=== PATIENT | female | born 1980 | race Caucasian/White ===

== ENCOUNTER 2017-01-28 14:38 | Emergency (ER) | payer OTHER ==
[~2017-01-28] VITALS: Ht 165.1 cm; Wt 70.0 kg
[~2017-01-28 14:38] MED LIST: OXYC1SOL5 PO; PREN1TAB30 PO
[2017-01-28 14:40] VITALS: BP 158/96; PULSE 126; RESP 20; TEMP 97.7; O2SAT 99
[2017-01-28] MEDS ORDERED: SODIUM CHLOR 0.9% 1000 ML INJ 1,000 ML IV SCH (16:04)
[2017-01-28 16:10] VITALS: PULSE 97; RESP 16; O2SAT 98
[2017-01-28 16:13] VITALS: O2SAT 97
[2017-01-28] MEDS ORDERED: ACETAMINOPHEN 500 MG CPLT PO ONE (16:15)
[2017-01-28] MEDS ORDERED: SODIUM CHLORIDE 0.9% FLUSH 10 ML FLUSH IV FLUSH PRN (16:15)
--- NOTE | 2017-01-28 16:28 | PD ---
HPI Chief Complaint: Complaint Time Seen by Provider: 16:04 Travel History International Travel<30 days: No Contact w/Intl Traveler<30days: No Traveled to known affect area: No History of Present Illness HPI Patient is a 36-year-old female proximal to 8 weeks here with complaint of flank pain. Patient states that she has had approximately 2 weeks of bilateral flank pain right greater than left. She notes some nausea which she thought was initially just her first trimester , but it has been getting more frequently propping ER visit. She denies any urinary symptoms other than frequency which she also attributed to a first trimester . She has had a history of associated UTI. Normal vaginal bleeding, spotting, discharge. No abdominal pain. PFSH Past Medical History Medical History: Denies Significant Hx ?: LMP: 12/07/16 Social History Alcohol Use: No Tobacco Use: No Substance Use: No Allergies-Medications (Allergen,Severity, Reaction): Coded Allergies: Cymbalta (Verified Allergy, Mild, chest pain, 01/28/17) Hydrocodone (Verified Allergy, Mild, swelling, 01/28/17) Latex (Verified Allergy, Unknown, itching and rash, 01/28/17) Reported Meds & Prescriptions Reported Meds & Active Scripts Active Oxycodone/Acetaminophen 5 mg/325 mg 1 Tab Tab 1 Tab PO Q4H PRN Reported Vitamins ( Vit W/ Ferrous Fumara) 1 Tab Tab 1 Tab PO DAILY Review of Systems Except as stated in HPI: all other systems reviewed are Neg Physical Exam Narrative GENERAL: Well-appearing female in no acute distress SKIN: Focused skin assessment warm/dry. HEAD: Normocephalic. EYES: . No scleral icterus. No injection or drainage. ENT: Mucous membranes pink and moist. NECK: Supple CARDIOVASCULAR: Initially tachycardic, normalized upon recheck. No murmur appreciated. RESPIRATORY: No accessory muscle use. Clear to auscultation. Breath sounds equal bilaterally. GASTROINTESTINAL: Abdomen soft, non-tender, nondistended. Bilateral CVA tenderness to palpation mild MUSCULOSKELETAL: No midline tenderness to palpation of the thoracic or lumbar spine. NEUROLOGICAL: Awake and alert. Normal gait. Normal speech. PSYCHIATRIC: Appropriate mood and affect; insight and judgment normal. Data Data Last Documented VS Vital Signs Date Time Temp Pulse Resp B/P Pulse Ox O2 Delivery O2 Flow Rate FiO2 01/28/17 16:13 97 Room Air 01/28/17 16:10 97 16 01/28/17 14:40 97.7 158/96 Orders Basic Metabolic Panel (Bmp) (01/28/17 16:04) Complete Blood Count With Diff (01/28/17 16:04) Urinalysis - C+S If Indicated (01/28/17 16:04) Iv Access Insert/Monitor (01/28/17 16:04) Ecg Monitoring (01/28/17 16:04) Oximetry (01/28/17 16:04) Sodium Chlor 0.9% 1000 Ml Inj (Ns 1000 M (01/28/17 16:04) Sodium Chloride 0.9% Flush (Ns Flush) (01/28/17 16:15) Acetaminophen (Tylenol) (01/28/17 16:15) Urine Culture (01/28/17 16:55) Labs Laboratory Tests Test 01/28/17 16:16 White Blood Count 11.2 TH/MM3 Red Blood Count 5.07 MIL/MM3 Hemoglobin 14.2 GM/DL Hematocrit 43.7 % Mean Corpuscular Volume 86.2 FL Mean Corpuscular Hemoglobin 28.1 PG Mean Corpuscular Hemoglobin 32.6 % Concent Red Cell Distribution Width 13.3 % Platelet Count 224 TH/MM3 Mean Platelet Volume 8.6 FL Neutrophils (%) (Auto) 63.5 % Lymphocytes (%) (Auto) 28.5 % Monocytes (%) (Auto) 6.7 % Eosinophils (%) (Auto) 0.3 % Basophils (%) (Auto) 1.0 % Neutrophils # (Auto) 7.1 TH/MM3 Lymphocytes # (Auto) 3.2 TH/MM3 Monocytes # (Auto) 0.8 TH/MM3 Eosinophils # (Auto) 0.0 TH/MM3 Basophils # (Auto) 0.1 TH/MM3 CBC Comment DIFF FINAL Differential Comment Urine Color LIGHT-YELLOW Urine Turbidity HAZY Urine pH 5.5 Urine Specific [place] 1.008 Urine Protein NEG mg/dL Urine Glucose (UA) NEG mg/dL Urine Ketones NEG mg/dL Urine Occult Blood TRACE Urine Nitrite NEG Urine Bilirubin NEG Urine Urobilinogen LESS THAN 2.0 MG/DL Urine Leukocyte Esterase SMALL Urine RBC LESS THAN 1 /hpf Urine WBC 2 /hpf Urine Squamous Epithelial 5 /hpf Cells Microscopic Urinalysis Comment CULT NOT INDICATED Sodium Level 137 MEQ/L Potassium Level 3.7 MEQ/L Chloride Level 104 MEQ/L Carbon Dioxide Level 26.5 MEQ/L Anion Gap 7 MEQ/L Blood Urea Nitrogen 9 MG/DL Creatinine 0.65 MG/DL Estimat Glomerular Filtration 103 ML/MIN Rate Random Glucose 92 MG/DL Calcium Level 9.1 MG/DL [facility] Medical Decision Making Medical Screen Exam Complete: Yes Emergency Medical Condition: Yes Medical Record Reviewed: Yes Differential Diagnosis 36-year-old female approximately 8 weeks based on LMP here with bilateral flank pain. Differential includes UTI, pyelonephritis, musculoskeletal. No significant urinary symptoms or radiation of her pain to suspect bilateral ureterolithiasis. Given some of her nausea we'll check electrolytes and hemoglobin. Narrative Course Patient placed on monitor, IV established and blood obtained. Given 1 L normal saline bolus, 1 g Tylenol. CBC, BMP, urinalysis obtained and notable for trace blood with small leukocyte esterase, 2 white cells but a dirty specimen with squamous cells. We'll treat empirically with Macrobid while awaiting formal urine culture. Diagnosis Primary Impression: Bilateral flank pain Referrals: Solution Engineer call for appointment Additional Instructions: Antibiotics as prescribed. Nausea medications as needed. Med/Other Pt SpecificInfo: Prescription(s) given Scripts Ondansetron Odt (Zofran Odt)8 Mg Tab8 Mg SL Q8H PRN (NAUSEA OR VOMITING) #20 TAB Ref 0 Prov:Miranda Adames MD 01/28/17 Nitrofurantoin Monohydrate Macrocrystals (Macrobid)100 Mg [id number] Mg PO BID 7 Days Ref 0 Prov:Miranda Adames MD 01/28/17 Disposition: 01 DISCHARGE HOME Condition: Stable Miranda Adames MD Jan 28, 2017 16:28
[2017-01-28 16:30] LABS: AUTOMATED NEUTROPHIL # 7.1 TH/MM3 (1.8-7.7); BASOPHIL # 0.1 TH/MM3 (0-0.2); EOSINOPHIL % 0.3 % (0.0-4.0); HEMATOCRIT 43.7 % (35.0-46.0); HEMO FLAGS DIFF FINAL; LYMPH % 28.5 % (9.0-44.0); LYMPHOCYTE # 3.2 TH/MM3 (1.0-4.8); MEAN CELL VOLUME 86.2 FL (80.0-100.0); MEAN CORPUSCULAR HEMOGLOBIN 28.1 PG (27.0-34.0); MEAN CORPUSCULAR HGB CONC 32.6 % (32.0-36.0); MONO % 6.7 % (0.0-8.0); NEUT % 63.5 % (16.0-70.0); PLATELET COUNT 224 TH/MM3 (150-450); RED BLOOD COUNT 5.07 MIL/MM3 (4.00-5.30); RED CELL DISTRIBUTION WIDTH 13.3 % (11.6-17.2); WHITE BLOOD COUNT 11.2 TH/MM3 (4.0-11.0)
[2017-01-28 16:46] LABS: BLOOD, URINE TRACE (NEG); COMMENT (UR) CULT NOT INDICATED; CULTURE IF INDICATED CULT NOT INDICATED; GLUCOSE,URINE NEG (NEG); KETONE, URINE NEG (NEG); NITRITE,URINE NEG (NEG); PH, URINE 5.5 (5.0-8.5); SQUAMOUS EPITHELIAL CELL URINE 5 /hpf (0-5); URINE COLOR LIGHT-YELLOW (YELLW/STRAW)
[2017-01-28 16:52] LABS: BICARBONATE 26.5 MEQ/L (21.0-32.0); POTASSIUM 3.7 MEQ/L (3.5-5.1)
[2017-01-28] MEDS ORDERED: MACR100C2 PO (16:58)
[2017-01-28] MEDS ORDERED: ZOFR8TAB4 SL (16:58)
== END 2017-01-28 17:13 | disposition home or self-care (01) ==
LOC: NEPD 14:38
DX: R10.9 Unspecified abdominal pain (principal); Z3A.08 8 weeks gestation of pregnancy
CPT/HCPCS: 80048; 81001; 85025; 87086; 96360; 99284; J7030

== ENCOUNTER 2017-06-04 18:16 | Emergency (ER) | payer OTHER ==
[~2017-06-04 18:16] MED LIST changes: +MACR100C2 PO; +ZOFR8TAB4 SL
--- NOTE | 2017-06-04 19:31 | PD ---
HPI Chief Complaint Lower abdominal cramping Date Seen: Jun 04, 2017 Travel History International Travel<30 Days: No Contact w/Intl Traveler<30Days: No Known Affected Area: No History of Present Illness HPI at 25w 4d presents with c/o lower abdominal cramping. Patient denies urinary/bowel complaints. No LOF/VB. Weeks Gestation: 25 Para: 1 : 2 History Past Medical History Medical History: Denies Significant Hx Past Surgical History Surgical History: No Previous Surgery Family History Family History: Negative Social History Alcohol Use: No Tobacco Use: No Substance Abuse: No Allergies-Medications (Allergen,Severity, Reaction): Coded Allergies: duloxetine (Unverified Allergy, Mild, chest pain, 05/28/17) hydrocodone (Unverified Allergy, Mild, swelling, 05/28/17) latex (Unverified Allergy, Unknown, itching and rash, 05/28/17) Home Meds Active Scripts Ondansetron Odt (Zofran Odt) 8 Mg Tab, 8 MG SL Q8H Y for NAUSEA OR VOMITING, # 20 TAB 0 Refills Prov:Miranda Adames MD 01/28/17 Nitrofurantoin Monohydrate Macrocrystals (Macrobid) 100 Mg Cap, 100 MG PO BID for Infection for 7 Days, CAP 0 Refills Prov:Miranda Adames MD 01/28/17 Oxycodone W/ Acetaminophen (Oxycodone/Acetaminophen 5-325 mg/5Ml) 1 Tab Tab, 1 TAB PO Q4H Y for PAIN SCALE 1 TO 4, #30 TAB Prov:Jackie Villa MD 06/18/15 Reported Medications Vit W/ Ferrous Fumara ( Vitamin 27-0.8 mg) 1 Tab Tab, 1 TAB PO DAILY 04/19/15 Physical Exam AFVSS BP 128/78 Narrative GENERAL: Well-nourished, well-developed patient. SKIN: Warm and dry. HEAD: Normocephalic and atraumatic. EYES: No scleral icterus. No injection or drainage. ENT: No nasal drainage noted. Mucous membranes pink. Airway patent. NECK: Supple, trachea midline. No JVD. CARDIOVASCULAR: Regular rate and rhythm without murmurs, gallops, or rubs. RESPIRATORY: Breath sounds equal bilaterally. No accessory muscle use. BREASTS: Bilateral exam showed no masses , no retractions, no nipple discharge. ABDOMEN/GI: Abdomen soft, non-tender, bowel sounds present, no rebound, no guarding Gravid to [-] weeks size Fundal Height: [-] GENITOURINARY: External Genitalia: intact and normal in appearance BUS glands: [-] Cervix: [-] Dilatation: [0] Effacement: [0] Station: [3] Presentation: [-] Membranes: [intact or ruptured] Uterine Contractions: [-] FHT's: Category: [1] Baseline: [150s] Reactive: [yes] Variability: [moderate] Decels: [none] EXTREMITIES: No cyanosis or edema. BACK: Nontender without obvious deformity. No CVA tenderness. NEUROLOGICAL: Awake and alert. Motor and sensory grossly within normal limits. Five out of 5 muscle strength in all muscle groups. Normal speech. Data Data Vital Signs Reviewed: Yes MDM Interpretation(s) IUP at 25w 4d, lower abdominal pain. Plan Will d/c home. Hydration and other supportive therapies d/w patient. Close f/ u with OB provider encouraged. All questions answered. Diagnosis Diagnosis: Primary Impression: 25 weeks gestation of Additional Impression: Abdominal pain during in second trimester Disposition: DISCHARGE HOME So Jackson MD Jun 04, 2017 19:31
== END 2017-06-04 21:05 | disposition home or self-care (01) ==
LOC: HOBED 18:16
DX: O47.02 False labor before 37 completed weeks of gestation, second trimester (principal); Z3A.25 25 weeks gestation of pregnancy
CPT/HCPCS: 99283

== ENCOUNTER 2017-07-02 13:16 | Emergency (ER) | payer OTHER ==
[~2017-07-02] VITALS: Ht 165.1 cm; Wt 79.8 kg
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
[2017-07-02 14:27] LABS: HEMATOCRIT 36.6 % (35.0-46.0); MEAN CELL VOLUME 88.3 FL (80.0-100.0); MEAN CORPUSCULAR HEMOGLOBIN 29.6 PG (27.0-34.0); MEAN CORPUSCULAR HGB CONC 33.5 % (32.0-36.0); PLATELET COUNT 242 TH/MM3 (150-450); RED BLOOD COUNT 4.15 MIL/MM3 (4.00-5.30); RED CELL DISTRIBUTION WIDTH 12.9 % (11.6-17.2); REVIEW FLAG FINAL
[2017-07-02 14:30] LABS: BLOOD, URINE TRACE (NEG); COMMENT (UR) CULT NOT INDICATED; CULTURE IF INDICATED CULT NOT INDICATED; GLUCOSE,URINE NEG (NEG); KETONE, URINE NEG (NEG); NITRITE,URINE NEG (NEG); SQUAMOUS EPITHELIAL CELL URINE 7 /hpf (0-5); URINE COLOR YELLOW (YELLW/STRAW)
[2017-07-02 15:27] LABS: ALT (GPT) 43 U/L (10-53); ANION GAP 9 MEQ/L (5-15); AST (GOT) 22 U/L (15-37); BICARBONATE 22.4 MEQ/L (21.0-32.0); BLOOD UREA NITROGEN 5 MG/DL (7-18); CHLORIDE 108 MEQ/L (98-107); GLOMERULAR FILTRATION RATE 121 ML/MIN (>89); POTASSIUM 3.7 MEQ/L (3.5-5.1); SODIUM (NA) 139 MEQ/L (136-145)
[2017-07-02 15:29] LABS: ALKALINE PHOSPHATASE 92 U/L (45-117); TOTAL BILIRUBIN ADULT 0.3 MG/DL (0.2-1.0)
== END 2017-07-02 15:43 | disposition home or self-care (01) ==
LOC: HOBED 13:16
DX: O26.893 Other specified pregnancy related conditions, third trimester (principal); M79.89 Other specified soft tissue disorders; G43.909 Migraine, unspecified, not intractable, without status migrainosus; O09.513 Supervision of elderly primigravida, third trimester; Z3A.29 29 weeks gestation of pregnancy; Z79.899 Other long term (current) drug therapy; Z88.5 Allergy status to narcotic agent; Z88.8 Allergy status to other drugs, medicaments and biological substances
CPT/HCPCS: 36415; 80053; 81001; 82570; 84156; 84550; 85027; 99283

== ENCOUNTER 2017-08-06 09:36 | Emergency (ER) | payer OTHER ==
[~2017-08-06] VITALS: Ht 165.1 cm; Wt 81.6 kg
[2017-08-06] MEDS ORDERED: DOXY10TA (09:50)
[2017-08-06 09:59] VITALS: BP 124/77; PULSE 116
[2017-08-06 10:00] VITALS: RESP 18
--- NOTE | 2017-08-06 10:19 | PD ---
HPI Chief Complaint Patient sent over by Dr. Ansari today for blood pressure checks and PIH lab Date Seen: Aug 06, 2017 Time Seen: 10:13 Travel History International Travel<30 Days: No Contact w/Intl Traveler<30Days: No Known Affected Area: No History of Present Illness HPI Patient is 37-year-old white female at [address] Ansari for care and saw him today in the office. They have watched her blood pressure over the last month or so it's only been up a couple times however she persistently complains of visual changes what she describes "flares" in her eyes and some right upper quadrant pain. She denies other complaints related to PIH. heart rate tracing is reactive she has no contractions baby is active, she had her blood drawn about 3 weeks ago was within normal limits. Weeks Gestation: 34 Para: 1 : 2 History Social History Alcohol Use: No Tobacco Use: No Substance Abuse: No Allergies-Medications (Allergen,Severity, Reaction): Coded Allergies: duloxetine (Verified Allergy, Mild, chest pain, 07/02/17) hydrocodone (Verified Allergy, Mild, swelling, 07/02/17) latex (Verified Allergy, Unknown, itching and rash, 07/02/17) Home Meds Reported Medications Doxylamine-Pyridoxine (Diclegis) 10-10 Mg Tab 08/06/17 Vit W/ Ferrous Fumara ( Vitamin 27-0.8 mg) 1 Tab Tab, 1 TAB PO DAILY 04/19/15 Review of Systems General / Constitutional: No: Fever, Weight Gain, Chills, Other Eyes: Visual changes, No: Diploplia, Blurred Vision, Pain, Photophobia HENT: No: Headaches, Vertigo, Lightheadedness Cardiovascular: No: Irregular Rhythm, Chest Pain or Discomfort, Palpitations, Tachycardia, Syncope, Varicosities, Edema, Cyanosis Respiratory: No: Cough, Short of Breath, Other Gastrointestinal: Abdominal Pain, No: Nausea, Vomiting, Diarrhea Genitourinary: No: Decreased Urinary Output, Oliguria Musculoskeletal: No: Limited ROM, Weakness, Cramping, Edema, Pain Skin: No Rash, No Itching, No Dryness, No Lumps, No Change in Pigmentation, No Change in Nails, No Alopecia, No Lesions Neurologic: No: Weakness, Dizziness, Syncope, Focal Abnormalities, Coordination Problem, Headache, Slurred Speech, Seizures Psychiatric: No: Depression, Suicidal Ideations, Homicidal Ideation Endocrine: No: Heat Intolerance, Cold Intolerance, Polydipsia, Polyuria, Other Physical Exam Narrative GENERAL: Well-nourished, well-developed patient. SKIN: Warm and dry. HEAD: Normocephalic and atraumatic. EYES: No scleral icterus. No injection or drainage. ENT: No nasal drainage noted. Mucous membranes pink. Airway patent. NECK: Supple, trachea midline. No JVD. CARDIOVASCULAR: Regular rate and rhythm without murmurs, gallops, or rubs. RESPIRATORY: Breath sounds equal bilaterally. No accessory muscle use. BREASTS: Bilateral exam showed no masses , no retractions, no nipple discharge. ABDOMEN/GI: Abdomen soft, non-tender, bowel sounds present, no rebound, no guarding Gravid to [-] weeks size Fundal Height: [-] GENITOURINARY: External Genitalia: intact and normal in appearance BUS glands: [-] Cervix: [-] Dilatation: [-] Effacement: [-] Station: [-] Presentation: [-] Membranes: [intact or ruptured] Uterine Contractions: [-] FHT's: Category: [-] Baseline: [-] Reactive: [-] Variability: [-] Decels: [-] EXTREMITIES: No cyanosis or edema. BACK: Nontender without obvious deformity. No CVA tenderness. NEUROLOGICAL: Awake and alert. Motor and sensory grossly within normal limits. Five out of 5 muscle strength in all muscle groups. Normal speech. Data Data Labs Laboratory Tests Test 08/06/17 10:06 White Blood Count 10.8 TH/MM3 Red Blood Count 4.15 MIL/MM3 Hemoglobin 12.5 GM/DL Hematocrit 36.6 % Mean Corpuscular Volume 88.1 FL Mean Corpuscular Hemoglobin 30.2 PG Mean Corpuscular Hemoglobin Concent 34.2 % Red Cell Distribution Width 13.4 % Platelet Count 188 TH/MM3 Mean Platelet Volume 9.1 FL Urine Color LIGHT-YELLOW Urine Turbidity CLEAR Urine pH 5.5 Urine Specific [place] 1.006 Urine Protein NEG mg/dL Urine Glucose (UA) NEG mg/dL Urine Ketones NEG mg/dL Urine Occult Blood TRACE Urine Nitrite NEG Urine Bilirubin NEG Urine Urobilinogen LESS THAN 2.0 MG/DL Urine Leukocyte Esterase NEG Urine RBC 1 /hpf Urine WBC LESS THAN 1 /hpf Urine Squamous Epithelial Cells 3 /hpf Urine Bacteria RARE /hpf Microscopic Urinalysis Comment CULT NOT INDICATED Blood Urea Nitrogen 6 MG/DL Creatinine 0.47 MG/DL Random Glucose 76 MG/DL Albumin 2.6 GM/DL Calcium Level 8.2 MG/DL Aspartate Amino Transf (AST/SGOT) 18 U/L Alanine Aminotransferase (ALT/SGPT) 27 U/L Sodium Level 137 MEQ/L Potassium Level 3.7 MEQ/L Chloride Level 107 MEQ/L Carbon Dioxide Level 19.4 MEQ/L Anion Gap 11 MEQ/L Estimat Glomerular Filtration Rate 148 ML/MIN MDM Interpretation(s) Patient is a 37-year-old white female at [address] Ansari for care and sent over by his office after seeing him today and noting that she had visual changes what she describes as flares in her eyes and had this for some time also she says some right upper quadrant pain as well as intermittently. No headache or other PIH symptoms. She's been at bedrest at home for elevated pressures for several weeks. On OB ED her blood pressures are normal, PIH lab normal, urine no protein, and heart rate tracing is reactive and no contractions that are regular Plan Plan to discharge patient home today to continued bedrest, by mouth fluid hydration, continue every 2-3 day blood pressure checks with Dr. Ansari Diagnosis Diagnosis: Primary Impression: Gestational [-induced] hypertension without significant proteinuria, third trimester Additional Impression: 34 weeks gestation of Disposition: DISCHARGE HOME Condition: Stable Frandy Maynard II, MD Aug 06, 2017 10:19
[2017-08-06 10:55] LABS: HEMATOCRIT 36.6 % (35.0-46.0); MEAN CELL VOLUME 88.1 FL (80.0-100.0); MEAN CORPUSCULAR HEMOGLOBIN 30.2 PG (27.0-34.0); MEAN CORPUSCULAR HGB CONC 34.2 % (32.0-36.0); PLATELET COUNT 188 TH/MM3 (150-450); RED BLOOD COUNT 4.15 MIL/MM3 (4.00-5.30); RED CELL DISTRIBUTION WIDTH 13.4 % (11.6-17.2); REVIEW FLAG FINAL; WHITE BLOOD COUNT 10.8 TH/MM3 (4.0-11.0)
[2017-08-06 11:00] LABS: BACTERIA, URINE RARE /hpf; BLOOD, URINE TRACE (NEG); COMMENT (UR) CULT NOT INDICATED; CULTURE IF INDICATED CULT NOT INDICATED; GLUCOSE,URINE NEG (NEG); KETONE, URINE NEG (NEG); NITRITE,URINE NEG (NEG); PH, URINE 5.5 (5.0-8.5); SQUAMOUS EPITHELIAL CELL URINE 3 /hpf (0-5); URINE COLOR LIGHT-YELLOW (YELLW/STRAW)
[2017-08-06 11:10] VITALS: BP 131/89; PULSE 105
[2017-08-06 11:22] LABS: ALT (GPT) 27 U/L (10-53); ANION GAP 11 MEQ/L (5-15); AST (GOT) 18 U/L (15-37); BICARBONATE 19.4 MEQ/L (21.0-32.0); BLOOD UREA NITROGEN 6 MG/DL (7-18); CHLORIDE 107 MEQ/L (98-107); GLOMERULAR FILTRATION RATE 148 ML/MIN (>89); POTASSIUM 3.7 MEQ/L (3.5-5.1); SODIUM (NA) 137 MEQ/L (136-145)
[2017-08-06 11:30] LABS: ALKALINE PHOSPHATASE 120 U/L (45-117); TOTAL BILIRUBIN ADULT 0.5 MG/DL (0.2-1.0); URIC ACID 4.5 MG/DL (2.6-6.0)
== END 2017-08-06 13:07 | disposition home or self-care (01) ==
LOC: HOBED 09:36
DX: O16.3 Unspecified maternal hypertension, third trimester (principal); Z3A.34 34 weeks gestation of pregnancy; Z88.5 Allergy status to narcotic agent; Z79.899 Other long term (current) drug therapy
CPT/HCPCS: 36415; 59025; 80053; 81001; 84550; 85027

== ENCOUNTER 2017-09-10 09:21 | Inpatient (IN) | payer OTHER ==
[2017-09-10] VITALS (12 sets, daily range): BP systolic 125–135; BP diastolic 76–90; PULSE 69–90; RESP 17–18; TEMP 98
[~2017-09-10 09:21] MED LIST changes: +DOXY10TA; -MACR100C2 PO; -OXYC1SOL5 PO; -ZOFR8TAB4 SL
--- NOTE | 2017-09-10 10:18 | PD ---
HPI Chief Complaint , Contractions, decreased movement, nausea vomiting Date Seen: Sep 10, 2017 Time Seen: 10:07 Travel History International Travel<30 Days: No Contact w/Intl Traveler<30Days: No Known Affected Area: No History of Present Illness HPI 37-year-old who is at 39 weeks 4 days comes in complaining of nausea vomiting 4 since last Saturday 6 PM. Patient is been attempting to hydrate but unable to eat any solid foods. States that she's been on bedrest since 28 weeks due to elevations in blood pressure however last set of blood work 1 week ago was normal. Patient states that her last was induced due to preeclampsia and she does complain of some mild epigastric pain. Weeks Gestation: 39 Para: 1 : 2 History Past Medical History Narrative Medical Advanced maternal age Nausea vomiting throughout this Preeclampsia and a preop prior Obstetric History Obstetric History 1 Past Surgical History Surgical History: No Previous Surgery Family History Family History: Negative Social History Alcohol Use: No Tobacco Use: No Substance Abuse: No Allergies-Medications (Allergen,Severity, Reaction): Coded Allergies: duloxetine (Verified Allergy, Mild, chest pain, 07/02/17) hydrocodone (Verified Allergy, Mild, swelling, 07/02/17) latex (Verified Allergy, Unknown, itching and rash, 07/02/17) Home Meds Reported Medications Doxylamine-Pyridoxine (Diclegis) 10-10 Mg Tab 08/06/17 Vit W/ Ferrous Fumara ( Vitamin 27-0.8 mg) 1 Tab Tab, 1 TAB PO DAILY 04/19/15 Review of Systems Except as stated in HPI: all other systems reviewed are Neg Physical Exam Narrative GENERAL: Well-nourished, well-developed patient. SKIN: Warm and dry. HEAD: Normocephalic and atraumatic. EYES: No scleral icterus. No injection or drainage. ENT: No nasal drainage noted. Mucous membranes pink. Airway patent. NECK: Supple, trachea midline. No JVD. CARDIOVASCULAR: Regular rate and rhythm without murmurs, gallops, or rubs. RESPIRATORY: Breath sounds equal bilaterally. No accessory muscle use. ABDOMEN/GI: Abdomen soft, non-tender, bowel sounds present, no rebound, no guarding Gravid to [38-] weeks size Fundal Height: [-] GENITOURINARY: External Genitalia: intact and normal in appearance BUS glands: [-Normal] Cervix: [Anterior-] Dilatation: [-2-3 Effacement: [-] 50 Station: [-] Is to Presentation: [-] Vertex Membranes: [intact ] Uterine Contractions: [-Occasional] FHT's: Category: [-1] Baseline: [140-] Reactive: [-Moderate] Variability: [Moderate-] Decels: [Absent-] EXTREMITIES: No cyanosis or edema. BACK: Nontender without obvious deformity. No CVA tenderness. NEUROLOGICAL: Awake and alert. Motor and sensory grossly within normal limits. Five out of 5 muscle strength in all muscle groups. Normal speech. Data Data Vital Signs Reviewed: Yes Group B Strep: Negative Labs Laboratory Tests Test 09/10/17 10:07 09/10/17 10:44 Urine Color YELLOW Urine Turbidity HAZY Urine pH 6.0 Urine Specific [place] 1.027 Urine Protein TRACE mg/dL Urine Glucose (UA) NEG mg/dL Urine Ketones TRACE mg/dL Urine Occult Blood TRACE Urine Nitrite NEG Urine Bilirubin NEG Urine Urobilinogen LESS THAN 2.0 MG/DL Urine Leukocyte Esterase SMALL Urine RBC 3 /hpf Urine WBC 2 /hpf Urine Squamous Epithelial Cells 11 /hpf Urine Bacteria FEW /hpf Urine Mucus FEW /lpf Microscopic Urinalysis Comment CULT NOT INDICATED White Blood Count 10.6 TH/MM3 Red Blood Count 4.45 MIL/MM3 Hemoglobin 13.4 GM/DL Hematocrit 39.0 % Mean Corpuscular Volume 87.7 FL Mean Corpuscular Hemoglobin 30.0 PG Mean Corpuscular Hemoglobin Concent 34.2 % Red Cell Distribution Width 13.3 % Platelet Count 159 TH/MM3 Mean Platelet Volume 10.3 FL Blood Urea Nitrogen 7 MG/DL Creatinine 0.62 MG/DL Random Glucose 83 MG/DL Total Protein 7.2 GM/DL Albumin 2.7 GM/DL Calcium Level 8.5 MG/DL Uric Acid 5.2 MG/DL Alkaline Phosphatase 159 U/L Aspartate Amino Transf (AST/SGOT) 45 U/L Alanine Aminotransferase (ALT/SGPT) 33 U/L Total Bilirubin 0.6 MG/DL Sodium Level 136 MEQ/L Potassium Level 4.6 MEQ/L Chloride Level 106 MEQ/L Carbon Dioxide Level 21.5 MEQ/L Anion Gap 9 MEQ/L Estimat Glomerular Filtration Rate 108 ML/MIN [facility] Medical Record Reviewed: Yes Plan 37-year-old who is at 39 weeks 4 days who comes in today with symptoms of nausea vomiting. Had a grade 1 heart rate tracing is noted but AST is slightly elevated may be either due to mild cholestasis of due to her pruritus but her mildly elevated blood pressures may also because well. I spoke with Dr. Ansari and I recommended admission with Cervidil with possible magnesium sulfate as needed for elevation of blood pressure. Diagnosis Diagnosis: Primary Impression: 39 weeks gestation of Additional Impressions: Advanced maternal age in multigravida Pre-eclampsia affecting , antepartum Crystal Hartmann MD Sep 10, 2017 10:18
[2017-09-10] MEDS ORDERED: ONDANSETRON HCL 4 MG/2 ML VIAL IV PUSH ONE (10:30)
[2017-09-10] MEDS ORDERED: LACTATED RINGER'S 1000 ML INJ 1,000 ML IV ONE (10:30)
[2017-09-10 11:04] LABS: BACTERIA, URINE FEW /hpf; BLOOD, URINE TRACE (NEG); COMMENT (UR) CULT NOT INDICATED; CULTURE IF INDICATED CULT NOT INDICATED; GLUCOSE,URINE NEG (NEG); KETONE, URINE TRACE mg/dL (NEG); MUCUS URINE FEW /lpf (OCC); NITRITE,URINE NEG (NEG); SQUAMOUS EPITHELIAL CELL URINE 11 /hpf (0-5); URINE COLOR YELLOW (YELLW/STRAW)
[2017-09-10 11:06] LABS: MEAN CELL VOLUME 87.7 FL (80.0-100.0); MEAN CORPUSCULAR HGB CONC 34.2 % (32.0-36.0); PLATELET COUNT 159 TH/MM3 (150-450); RED BLOOD COUNT 4.45 MIL/MM3 (4.00-5.30); RED CELL DISTRIBUTION WIDTH 13.3 % (11.6-17.2); REVIEW FLAG FINAL; WHITE BLOOD COUNT 10.6 TH/MM3 (4.0-11.0)
[2017-09-10 11:25] LABS: ALT (GPT) 33 U/L (10-53); ANION GAP 9 MEQ/L (5-15); BICARBONATE 21.5 MEQ/L (21.0-32.0); BLOOD UREA NITROGEN 7 MG/DL (7-18); CHLORIDE 106 MEQ/L (98-107); GLOMERULAR FILTRATION RATE 108 ML/MIN (>89); SODIUM (NA) 136 MEQ/L (136-145); URIC ACID 5.2 MG/DL (2.6-6.0)
[2017-09-10 11:26] LABS: ALKALINE PHOSPHATASE 159 U/L (45-117); TOTAL BILIRUBIN ADULT 0.6 MG/DL (0.2-1.0)
[2017-09-10 11:28] LABS: AST (GOT) 45 U/L (15-37); POTASSIUM 4.6 MEQ/L (3.5-5.1)
[2017-09-10] MEDS ORDERED: LIDOCAINE HCL 1% 50 ML VIAL I-DERMAL PRN ×3 (12:00→14:45)
[2017-09-10] MEDS ORDERED: SODIUM CHLORID 0.9% 500 ML INJ 500 ML IV PRN ×3 (12:00→14:45)
[2017-09-10] MEDS ORDERED: CITRIC ACID-SODIUM CITRATE LIQ 30 ML UDC PO SCH ×3 (12:00→14:45)
[2017-09-10] MEDS ORDERED: LIDOCAINE HCL 1% 50 ML VIAL INFIL PRN ×3 (12:00→14:45)
[2017-09-10] MEDS ORDERED: MINERAL OIL 10 ML VIAL TOPICAL PRN ×3 (12:00→14:45)
[2017-09-10] MEDS ORDERED: LACTATED RINGER'S 1000 ML INJ 1,000 ML IV SCH ×2 (12:00→12:06)
[2017-09-10] MEDS ORDERED: LACTATED RINGER'S 1000 ML INJ 1,000 ML IV PRN ×3 (12:00→14:31)
[2017-09-10] MEDS ORDERED: SODIUM CHLORIDE 0.9% FLUSH 10 ML FLUSH IV FLUSH PRN ×2 (12:00→12:15)
[2017-09-10] MEDS ORDERED: DINOPROSTONE 10 MG VAG INSERT VAGINAL ONE ×4 (12:00→14:45)
[2017-09-10] MEDS ORDERED: OXYTOCIN 30 UNITS-500ML PREMIX 500 ML IV ONE ×3 (12:15→14:45)
[2017-09-10] MEDS ORDERED: SODIUM CHLOR 0.9% 1000 ML INJ 1,000 ML IV PRN ×3 (12:26→14:51)
[2017-09-10 13:07] LABS: MEAN CELL VOLUME 87.7 FL (80.0-100.0); MEAN CORPUSCULAR HGB CONC 34.2 % (32.0-36.0); PLATELET COUNT 159 TH/MM3 (150-450); RED BLOOD COUNT 4.45 MIL/MM3 (4.00-5.30); RED CELL DISTRIBUTION WIDTH 13.3 % (11.6-17.2); WHITE BLOOD COUNT 10.6 TH/MM3 (4.0-11.0)
[2017-09-10 13:44] LABS: BANDS 2 % (0-6); NEUTROPHIL # MANUAL DIFF 7.4 TH/MM3 (1.8-7.7); POLYS (SEG NEUTROPHILS) 68 % (16-70); WBC DIFF SAMPLE 100
[2017-09-10 13:48] LABS: PLATELET ESTIMATE SMEAR NORMAL (NORMAL); PLATELET MORPHOLOGY ENLARGED (NORMAL)
[2017-09-10 13:50] LABS: SCAN/DIFF FINAL DIFF MANUAL
[2017-09-10] MEDS: LACTATED RINGER'S 1000 ML INJ 1,000 ML IV SCH (14:41)
[2017-09-10] MEDS ORDERED: ONDANSETRON HCL 4 MG/2 ML VIAL IV PUSH PRN (17:00)
[2017-09-10] MEDS ORDERED: ZOLPIDEM TARTRATE 5 MG TAB PO PRN ×2 (17:30→20:00)
[2017-09-10] MEDS ORDERED: OXYTOCIN 30 UNITS-500ML PREMIX 500 ML IV SCH (17:30)
[2017-09-10] MEDS ORDERED: SODIUM CHLORIDE 0.9% FLUSH 10 ML FLUSH IV FLUSH SCH ×2 (21:00)
[2017-09-11] VITALS (17 sets, daily range): BP systolic 124–147; BP diastolic 77–95; PULSE 65–114; RESP 16–18; TEMP 97.8–98.7; O2SAT 98
[2017-09-11] MEDS: LACTATED RINGER'S 1000 ML INJ 1,000 ML IV SCH ×2 (01:01→15:01)
[2017-09-11] MEDS ORDERED: fentaNYL 2MCG-BUPIV 0.125% INJ 100 ML ONE (01:21)
[2017-09-11] MEDS ORDERED: ePHEDrine/NS 25 MG/5 ML SYR ONE (01:23)
--- NOTE | 2017-09-11 01:49 | PD.OB.DELI ---
Weeks gestation: 39 Gest age assessed date: Sep 11, 2017 Gest age assessed time: 01:47 Pt started active labor?: Yes Active labor start date: Sep 11, 2017 Active labor start time: 00:30 Medical induction of labor?: Yes Medical induction start date: Sep 10, 2017 Medical induction start time: 15:00 Artificial rupture of membrane: No Anesthesia: None Episiotomy: None Vaginal Delivery: Spontaneous Presentation: Occiput anterior, Vertex Nuchal Cord: x1 Delayed cord clamping (45 sec): Yes Infant: Female Delivery date: Sep 11, 2017 Delivery time: 01:38 One Minute : 8 Five Minute : 9 Placenta: Spontaneous delivery Laceration: Vaginal laceration, 2 deg Repair: Chromic running Estimated blood loss: 300cc Crystal Hartmann MD Sep 11, 2017 01:49
[2017-09-11] MEDS ORDERED: BENZOCAINE 20% TOPICAL SPRAY 60 ML CAN TOPICAL PRN (02:00)
[2017-09-11] MEDS ORDERED: ONDANSETRON ODT 4 MG TAB PO PRN (02:00)
[2017-09-11] MEDS ORDERED: WITCH HAZEL 50%/GLYCERIN 12.5% 40 PAD JAR TOPICAL PRN (02:00)
[2017-09-11] MEDS ORDERED: DOCUSATE SODIUM 50 MG/SENNA 8.6 MG TAB PO PRN (02:00)
[2017-09-11] MEDS ORDERED: OXYTOCIN 30 UNITS-500ML PREMIX 500 ML IV SCH (02:00)
[2017-09-11] MEDS ORDERED: ALUMINUM/MAGNESIUM/SIMETH 30 ML CUP PO PRN (02:00)
[2017-09-11] MEDS ORDERED: SODIUM CHLORIDE 0.9% FLUSH 10 ML FLUSH IV FLUSH PRN (02:00)
[2017-09-11] MEDS: IBUPROFEN 800 MG TAB PO PRN ×3 (03:21→20:20)
[2017-09-11] MEDS ORDERED: SODIUM CHLORIDE 0.9% FLUSH 10 ML FLUSH IV FLUSH SCH (09:00)
--- NOTE | 2017-09-11 09:26 | HHI.OB ---
Subjective Post Day: 0 Objective Vitals/I&O Vital Signs Date Time Temp Pulse Resp B/P (MAP) Pulse Ox O2 Delivery O2 Flow Rate FiO2 09/11/17 05:15 97.8 16 98 09/11/17 05:15 85 147/79 (101) 09/11/17 03:30 98.0 85 134/94 (107) 09/11/17 03:30 18 09/11/17 03:15 86 124/79 (94) 09/11/17 03:00 91 128/86 (100) 09/11/17 02:45 88 125/80 (95) 09/11/17 02:30 90 09/11/17 02:30 132/78 (96) 09/11/17 02:15 87 133/89 (104) 09/11/17 02:00 137/85 (102) 09/11/17 02:00 87 09/11/17 01:59 95 136/85 (102) 09/11/17 01:57 18 09/11/17 01:53 97 142/84 (103) 09/11/17 01:45 18 09/11/17 01:43 114 140/77 (98) 09/11/17 01:00 98.7 18 09/11/17 00:59 102 145/95 (112) 09/10/17 21:33 18 09/10/17 21:32 90 126/90 (102) 09/10/17 20:21 128/85 (99) 09/10/17 20:21 82 09/10/17 19:00 98.0 18 09/10/17 18:33 88 131/86 (101) 09/10/17 12:00 78 125/80 (95) 09/10/17 12:00 17 09/10/17 11:45 77 126/76 (93) 09/10/17 11:30 69 132/79 (96) 09/10/17 11:15 71 135/86 (102) 09/10/17 11:00 76 130/79 (96) 09/10/17 10:46 79 130/83 (99) 09/10/17 10:44 79 132/85 (101) Objective Remarks GENERAL: Well-nourished, well-developed patient. CARDIOVASCULAR: Regular rate and rhythm without murmurs, gallops, or rubs. RESPIRATORY: Breath sounds equal bilaterally. No accessory muscle use. ABDOMEN/GI: Abdomen soft, non-tender. Fundus: Firm, non-tender at umbilicus. GENITOURINARY: Light to moderate bleeding. EXTREMITIES: No cyanosis or edema, non-tender, without signs of DVT. Medications and IVs Current Medications Medications (Trade) Dose Ordered Sig/[place] Route Start Time Stop Time Status Last Admin Lactated Ringer's 1,000 ml @ 125 mls/hr Q8H IV 09/10/17 14:31 09/11/17 01:01 Lactated Ringer's 1,000 ml @ 3,000 mls/hr Q20M PRN IV 09/10/17 14:31 Sodium Chloride 500 ml @ 1,000 mls/hr ONCE PRN IV 09/10/17 14:45 09/12/17 14:44 Sodium Chloride 1,000 ml @ 100 mls/hr Q10H PRN IV 09/10/17 14:51 (Xylocaine 1% Inj (50 ml)) 0.1 ml UNSCH X1 PRN I-DERMAL 09/10/17 14:45 09/13/17 14:44 (Bicitra Liq) 30 ml SETTLEMENT PROCESSOR PO 09/10/17 14:45 09/14/17 14:44 (fentaNYL INJ) 50 mcg Q1H PRN IV PUSH 09/10/17 14:45 (fentaNYL INJ) 100 mcg Q1H PRN IV PUSH 09/10/17 14:45 09/11/17 01:35 (Xylocaine 1% Inj (50 ml)) 10 ml UNSCH X1 PRN INFIL 09/10/17 14:45 09/12/17 14:44 (Muri-Lube Oil) 10 ml UNSCH PRN TOPICAL 09/10/17 14:45 Oxytocin 500 ml @ 2 mls/hr TITRATE IV 09/10/17 17:30 (Ambien) 5 mg HS PRN PO 09/10/17 20:00 09/10/17 21:34 (NS Flush) 2 ml BID IV FLUSH 09/11/17 09:00 (NS Flush) 2 ml UNSCH PRN IV FLUSH 09/11/17 02:00 (Tylenol) 650 mg Q4H PRN PO 09/11/17 02:00 (Motrin) 800 mg Q8H PRN PO 09/11/17 02:00 09/11/17 03:21 (Americaine 20% Top Spr) 1 spray Q4H PRN TOPICAL 09/11/17 02:00 09/11/17 05:28 (Tucks Pads) 1 applic QID PRN TOPICAL 09/11/17 02:00 09/11/17 05:28 (Laurita-Colace) 2 tab Q12H PRN PO 09/11/17 02:00 (M-M-R Ii Inj) 0.5 ml ONCE ONCE SQ 09/11/17 16:00 09/11/17 16:01 (Boostrix Inj) 0.5 ml ONCE ONCE IM 09/11/17 16:00 09/11/17 16:01 (Mag-Al Plus Susp Liq) 15 ml Q8H PRN PO 09/11/17 02:00 (Zofran Odt) 4 mg Q6H PRN PO 09/11/17 02:00 Assessment/Plan Assessment and Plan pt delivered this am pt is doing well ambulating in room without difficulty lft and bp slightly elevated, we will monitor and repeat labs in am pain well managed with oral pain mediation nausea and vomiting has resolved bonding with infant routine care Discharge Planning dc home in 1-2 days Brigida Steele Sep 11, 2017 09:26
[2017-09-11] MEDS: ACETAMINOPHEN 325 MG TAB PO PRN ×2 (11:44→20:20)
[2017-09-11] MEDS ORDERED: DIPHTH/TETANUS/ACEL PERTUSSIS (BOOSTER) 0.5 ML VIAL/PFS IM ONE (16:00)
[2017-09-11] MEDS ORDERED: MEASLES, MUMPS, RUBELLA VACCINE 0.5 ML VIAL SQ ONE (16:00)
[2017-09-12] MEDS: IBUPROFEN 800 MG TAB PO PRN (06:06)
[2017-09-12] MEDS: ACETAMINOPHEN 325 MG TAB PO PRN (06:06)
[2017-09-12 08:00] VITALS: BP 131/82; PULSE 73; RESP 16; TEMP 97.7; O2SAT 97
[2017-09-12 09:26] LABS: HEMATOCRIT 39.4 % (35.0-46.0); MEAN CELL VOLUME 88.3 FL (80.0-100.0); MEAN CORPUSCULAR HEMOGLOBIN 29.9 PG (27.0-34.0); MEAN CORPUSCULAR HGB CONC 33.8 % (32.0-36.0); PLATELET COUNT 156 TH/MM3 (150-450); RED BLOOD COUNT 4.46 MIL/MM3 (4.00-5.30); RED CELL DISTRIBUTION WIDTH 13.7 % (11.6-17.2); REVIEW FLAG FINAL; WHITE BLOOD COUNT 9.1 TH/MM3 (4.0-11.0)
[2017-09-12 09:48] LABS: INDIRECT BILIRUBIN 0.4 MG/DL (0.0-0.8); TOTAL BILIRUBIN ADULT 0.5 MG/DL (0.2-1.0)
--- NOTE | 2017-09-12 11:43 | HHI.OB ---
Subjective Post Day: 1 Objective Vitals/I&O Vital Signs Date Time Temp Pulse Resp B/P (MAP) Pulse Ox O2 Delivery O2 Flow Rate FiO2 09/12/17 08:00 97.7 97 09/12/17 08:00 73 16 131/82 (98) 09/11/17 20:15 98.0 65 18 140/89 (106) Objective Remarks GENERAL: Well-nourished, well-developed patient. CARDIOVASCULAR: Regular rate and rhythm without murmurs, gallops, or rubs. RESPIRATORY: Breath sounds equal bilaterally. No accessory muscle use. ABDOMEN/GI: Abdomen soft, non-tender. Fundus: Firm, non-tender at umbilicus. GENITOURINARY: Light to moderate bleeding. EXTREMITIES: No cyanosis or edema, non-tender, without signs of DVT. Medications and IVs Current Medications Medications (Trade) Dose Ordered Sig/[place] Route Start Time Stop Time Status Last Admin Lactated Ringer's 1,000 ml @ 125 mls/hr Q8H IV 09/10/17 14:31 09/11/17 01:01 Lactated Ringer's 1,000 ml @ 3,000 mls/hr Q20M PRN IV 09/10/17 14:31 Sodium Chloride 500 ml @ 1,000 mls/hr ONCE PRN IV 09/10/17 14:45 09/12/17 14:44 Sodium Chloride 1,000 ml @ 100 mls/hr Q10H PRN IV 09/10/17 14:51 (Xylocaine 1% Inj (50 ml)) 0.1 ml UNSCH X1 PRN I-DERMAL 09/10/17 14:45 09/13/17 14:44 (Bicitra Liq) 30 ml WAREHOUSE LOADER PO 09/10/17 14:45 09/14/17 14:44 (fentaNYL INJ) 50 mcg Q1H PRN IV PUSH 09/10/17 14:45 (fentaNYL INJ) 100 mcg Q1H PRN IV PUSH 09/10/17 14:45 09/11/17 01:35 (Xylocaine 1% Inj (50 ml)) 10 ml UNSCH X1 PRN INFIL 09/10/17 14:45 09/12/17 14:44 (Muri-Lube Oil) 10 ml UNSCH PRN TOPICAL 09/10/17 14:45 Oxytocin 500 ml @ 2 mls/hr TITRATE IV 09/10/17 17:30 (Ambien) 5 mg HS PRN PO 09/10/17 20:00 09/10/17 21:34 (NS Flush) 2 ml BID IV FLUSH 09/11/17 09:00 (NS Flush) 2 ml UNSCH PRN IV FLUSH 09/11/17 02:00 (Tylenol) 650 mg Q4H PRN PO 09/11/17 02:00 09/12/17 06:06 (Motrin) 800 mg Q8H PRN PO 09/11/17 02:00 09/12/17 06:06 (Americaine 20% Top Spr) 1 spray Q4H PRN TOPICAL 09/11/17 02:00 09/11/17 05:28 (Tucks Pads) 1 applic QID PRN TOPICAL 09/11/17 02:00 09/11/17 05:28 (Laurita-Colace) 2 tab Q12H PRN PO 09/11/17 02:00 (Mag-Al Plus Susp Liq) 15 ml Q8H PRN PO 09/11/17 02:00 (Zofran Odt) 4 mg Q6H PRN PO 09/11/17 02:00 Assessment/Plan Problem List: (1) Normal vaginal delivery ICD Codes: O80 - Encounter for full-term uncomplicated delivery Assessment and Plan pt is doing well bp slightly elevated, denies visual changes, headache or epigastric pain repeat labs WNL, pt counseled on s/s of pre-eclampsia and to return to office or hospital if they occur pain well managed with oral pain mediation routine care Discharge Planning dc home today if infant is discharged Brigida Steele Sep 12, 2017 11:43
--- NOTE | 2017-09-12 11:45 | HHI.DCPOC ---
Discharge Care Plan Diagnosis: (1) Normal vaginal delivery Your Health Problems Are: Vaginal delivery Report Symptoms to Your Doctor -Temperature above 100.5 degrees -Redness, of incision or excessive or foul smelling drainage -Unusual pain or calf pain -Increased vaginal bleeding -Painful or difficulty urinating -Feelings of extreme sadness or anxiety after 2 weeks Goals to Promote Your Health * To prevent worsening of your condition and complications * To maintain your health at the optimal level Directions to Meet Your Goals Take your medications as prescribed Follow your dietary instruction Follow activity as directed Ensure plenty of rest for recovery Drink fluids for hydration Keep your appointments as scheduled Take your immunizations and boosters as scheduled If your symptoms worsen call your PCP, if no PCP go to Urgent Care Center or Emergency Room Smoking is Dangerous to Your Health. Avoid second hand smoke Call the 24-hour crisis hotline for domestic abuse at Brigida Steele Sep 12, 2017 11:45
[2017-09-12] MEDS ORDERED: IBUP1TAB7 PO (11:46)
--- NOTE | 2017-09-12 12:11 | HHI.DS ---
Admission Date Sep 10, 2017 at 11:56 Discharge Date: Sep 12, 2017 Admitting Diagnosis term mild pre-eclampsia Diagnosis: (1) Mild pre-eclampsia in third trimester ICD Codes: O14.03 - Mild pre-eclampsia in third trimester Status: Acute (2) Normal vaginal delivery ICD Codes: O80 - Encounter for full-term uncomplicated delivery Delivery Date: Sep 11, 2017 Vaginal Delivery: Normal Infant: Female Brief History 37-year-old who is at 39 weeks 4 days comes in complaining of nausea vomiting 4 since last Saturday 6 PM. Patient is been attempting to hydrate but unable to eat any solid foods. States that she's been on bedrest since 28 weeks due to elevations in blood pressure however last set of blood work 1 week ago was normal. Patient states that her last was induced due to preeclampsia and she does complain of some mild epigastric pain. Hospital Course Cervidil induction monitor for pre-eclampsia routine care Pt Condition on Discharge: Good Discharge Disposition: Discharge Home Discharge Instructions Diet Instructions: As Tolerated, No Restrictions Additional Diet Instructions: Drink at least 8 - 16 oz bottles of water a day Activities You Can Perform: Shower Only-No Bath, Sitz Bath Activities to Avoid: Lifting/Bending, Sexual Activity Additional Activity Instruc.: No driving until off pain medications Do not lift anything heavier than your baby in an infant carrier Follow up Referrals: [facility] - 1 Week @ [facility] New Medications: Ibuprofen (Ibuprofen) 800 Mg Tab 800 MG PO Q8H PRN for CRAMPING for 30 Days, #90 TAB Continued Medications: Vit W/ Ferrous Fumara ( Vitamin 27-0.8 mg) 1 Tab Tab 1 TAB PO DAILY Discontinued Medications: Doxylamine-Pyridoxine (Diclegis) 10-10 Mg Tab Brigida Steele Sep 12, 2017 12:11
== END 2017-09-12 15:25 | disposition home or self-care (01) | DRG 775 ==
LOC: HOBED 09:21 → H2EB 11:56 → H1EA 09-11 03:45
PROVIDERS: ADMIT Obstetrics & Gynecology; ATTEND Obstetrics & Gynecology
PROC: 3E0P3VZ Introduction of Hormone into Female Reproductive, Percutaneous Approach (ICD-10-PCS; 2017-09-10)
PROC: 10E0XZZ Delivery of Products of Conception, External Approach (ICD-10-PCS; principal; 2017-09-11)
PROC: 0KQM0ZZ Repair Perineum Muscle, Open Approach (ICD-10-PCS; 2017-09-11)
DX: O14.04 Mild to moderate pre-eclampsia, complicating childbirth (principal); O69.81X0 Labor and delivery complicated by cord around neck, without compression, not applicable or unspecified; O70.1 Second degree perineal laceration during delivery; Z3A.39 39 weeks gestation of pregnancy; Z37.0 Single live birth
CPT/HCPCS: 59025; 80053; 80074; 80076; 80307; 81001; 84550; 85007; 85027; 90715; J2405; J2590; J3010; J7120

== ENCOUNTER → 2017-10-03 | Outpatient (CLI) | payer OTHER ==
[~2017-10-03] MED LIST changes: -DOXY10TA; +IBUP1TAB7 PO
[2017-10-03 15:46] LABS: AUTOMATED NEUTROPHIL # 3.3 TH/MM3 (1.8-7.7); BASOPHIL # 0.1 TH/MM3 (0-0.2); BASOPHIL % 0.9 % (0.0-2.0); EOSINOPHIL # 0.1 TH/MM3 (0-0.4); EOSINOPHIL % 0.9 % (0.0-4.0); HEMATOCRIT 44.7 % (35.0-46.0); HEMO FLAGS DIFF FINAL; LYMPH % 46.6 % (9.0-44.0); LYMPHOCYTE # 3.3 TH/MM3 (1.0-4.8); MEAN CELL VOLUME 87.8 FL (80.0-100.0); MEAN CORPUSCULAR HEMOGLOBIN 29.3 PG (27.0-34.0); MEAN CORPUSCULAR HGB CONC 33.3 % (32.0-36.0); MONO % 5.6 % (0.0-8.0); PLATELET COUNT 224 TH/MM3 (150-450); RED BLOOD COUNT 5.09 MIL/MM3 (4.00-5.30); RED CELL DISTRIBUTION WIDTH 13.1 % (11.6-17.2); WHITE BLOOD COUNT 7.1 TH/MM3 (4.0-11.0)
== END ==
LOC: CLAB 15:29
PROVIDERS: ATTEND Obstetrics & Gynecology
DX: T14.8XXA Other injury of unspecified body region, initial encounter (principal); X58.XXXA Exposure to other specified factors, initial encounter
CPT/HCPCS: 36415; 85025